=== PATIENT | male | born 1980 | race Hispanic/Latino ===

== ENCOUNTER 2022-12-10 19:34 | Emergency (ER) | payer SELFPAY ==
[2022-12-10] VITALS (21 sets, daily range): BP systolic 140–160; BP diastolic 88–107; PULSE 68–83; RESP 14–23; TEMP 36.9; O2SAT 96–100
--- NOTE | ~2022-12-10 | XR_ITS ---
EXAMINATION: XR chest 2V Exam Date/Time: 12/10/2022 20:10 [employer] HISTORY: chest pain Comparison: None available. RESULT: Lines, tubes, and devices: None. Lungs and pleura: Low lung volumes with crowding. No focal consolidation, pneumothorax, or effusion. Cardiomediastinal silhouette: Stable. Other: No acute osseous or upper abdominal finding. IMPRESSION: No acute cardiopulmonary process. Reviewed, dictated and finalized at location [facility] [employer]
--- NOTE | 2022-12-10 19:47 | ECG_ITS ---
Measurements Intervals Garner Rate: 84 P: 19 RI: 173 QRS: 42 QRSD: 100 T: 3 QT: 373 QTc: 441 Interpretive Statements SINUS RHYTHM MINIMAL Q WAVES- INFERIOR LEADS BORDERLINE ECG NO PREVIOUS ECG AVAILABLE FOR COMPARISON Electronically Signed On 12-10-2022 20:08:47 DIRECTOR OF CAMPUS RECREATION by Carlos Joyce D.O.
[2022-12-10] MEDS: ASPIRIN 81 MG CHEWABLE TABLET 324 MG PO (19:49)
[2022-12-10 20:06] LABS: Basophils Absolute Auto 0.1 K/mm3 (0.0-0.1); Basophils Percent Auto 0.5 % (0.2-1.2); Eosinophils Absolute Auto 0.1 K/mm3 (0-0.3); Hemoglobin 16.6 g/dL (14.0-18.0); Immature Granulocyte Absolute 0.04 K/mm3 (0.00-0.031); Immature Granulocyte Percent A 0.4 % (0-0.5); Lymphocytes Absolute Auto 2.82 K/mm3 (0.9-3.2); Lymphocytes Percent Auto 27.7 % (18.3-44.2); Mean Corpuscular HGB Conc 36.1 g/dl (32-36); Mean Corpuscular Hemoglobin 31.9 pg (26-34); Mean Corpuscular Volume 88.3 fl (80-100); Mean Platelet Volume 9.5 fl (7.4-10.4); Monocytes Absolute Auto 0.6 K/mm3 (0.1-0.6); Monocytes Percent Auto 5.8 % (2.6-8.5); Neutrophils Absolute Auto 6.6 K/mm3 (1.3-6.7); Neutrophils Percent Auto 64.6 % (45.5-73.1); Platelet Count Result 302 k/mm3 (150-375); Red Blood Count 5.21 M/mm3 (4.6-6.20); Red Cell Distribution Width 11.7 % (11.5-14.5); White Blood Count 10.2 K/mm3 (4.5-10.0)
[2022-12-10 20:17] LABS: Partial Thromboplastin Time 29.6 SECONDS (22.3-36.8); Prothrombin Time 12.5 Seconds (11.1-14.7)
[2022-12-10 20:20] LABS: Alanine Aminotransferase 31 U/L (6-50); Albumin Level 4.8 g/dL (3.5-5.1); Alkaline Phosphatase 111 U/L (38-126); Anion Gap 7 mmol/L (8-16); Aspartate Amino Transferase 36 U/L (17-59); Bilirubin,Total 1.5 mg/dL (0.2-1.3); Blood Urea Nitrogen 11 mg/dL (9-20); Calcium 9.3 mg/dL (8.4-10.2); Carbon Dioxide 26 mmol/L (22-30); Chloride 102 mmol/L (98-107); Estimated CRCL calculation 104 ml/min; Estimated Glomerular Filt Rate > 60; Glucose 114 mg/dL (65-110); Lipase 96 U/L (23-300); Potassium 3.6 mmol/L (3.4-5.0); Sodium 135 mmol/L (137-145)
[2022-12-10 20:30] LABS: Troponin I < 0.012 ng/mL (0.000-0.034)
--- NOTE | 2022-12-10 22:03 | ED.CHESTPAIN ---
HPI - Chest Pain General Chief Complaint: Chest Pain Stated Complaint: Chest pain Time Seen by Provider: 12/10/22 21:39 History of Present Illness HPI narrative: No other 42-year-old male no medical problems presents to the emergency room for evaluation of chest pain. Patient states over the past 3 weeks he has experienced 5 different episodes of left anterior chest pain that is aggravated when he lifts his left arm up over his head. Patient states today's event lasted approximately 10 minutes. Does not take any medications to alleviate his symptoms. 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 Denies palpitations. Denies any peripheral edema. Related Data Allergies Allergy/AdvReac Type Severity Reaction Status Date / Time No Known Allergies Allergy Verified 12/10/22 19:49 Review of Systems Review of Systems: CONSTITUTIONAL: Denies fever, chills, or sweats. EYES: Denies visual changes, redness, or discharge. ENT: Denies rhinorrhea, congestion, sore throat, or otalgia. CARDIOVASCULAR: Reports chest pain RESPIRATORY: Denies cough or dyspnea. GASTROINTESTINAL: Denies abdominal pain, nausea, vomiting, or diarrhea. GENITOURINARY: Denies dysuria or hematuria. SKIN: Denies rash or itching. MUSCULOSKELETAL: Denies back pain, joint pain, or myalgia. NEUROLOGIC: Denies headache, numbness, dizziness, or weakness. PSYCHIATRIC: Denies anxiety or depression. Exam Narrative: GENERAL: Well-appearing, well-nourished, no physical limitations, and in no acute distress. HEAD: Normocephalic, atraumatic. EYES: Conjunctivae normal, PERRLA and EOMI. CHEST: Clear to auscultation. No respiratory distress. No wheezes rales or rhonchi. Left anterior chest wall tenderness. HEART: Regular rate and rhythm. No murmur heard. Normal peripheral pulses. EXTREMITIES: Normal range of motion. No edema. No clubbing or cyanosis SKIN: Warm, dry, no rash. No noted wounds NEURO: No focal deficits. Alert and oriented x3. MAEW. CN's II-XI intact bilaterally, normal gait PSYCH: Cooperative. Normal mood and affect. Course Vital Signs Vital signs: Vital Signs Temperature 36.9 C 12/10/22 19:43 Pulse Rate 79 12/10/22 19:43 Respiratory Rate 18 12/10/22 19:43 Blood Pressure 160/106 H 12/10/22 19:43 Pulse Oximetry 100 12/10/22 19:43 Oxygen Delivery Room Air 12/10/22 19:43 Temperature 36.9 C 12/10/22 19:43 Pulse Rate 77 12/10/22 21:46 Respiratory Rate 20 12/10/22 21:46 Blood Pressure 149/88 H 12/10/22 21:46 Pulse Oximetry 98 12/10/22 21:46 Oxygen Delivery Room Air 12/10/22 21:53 MDM - Chest Pain MDM Narrative Medical decision making narrative: 42-year-old male presented to the emergency room for evaluation of intermittent chest pain for 3 weeks. His exam showed no evidence of volume overload. EKG showed no signs of acute ischemia. Single troponin and a Dr. Parekh on both negative. Well score was a 0. Chest x-ray showed no signs of acute cardiopulmonary disease. Heart score was a 0. will discharge patient home follow-up with primary care and cardiology. Lab Data 12/10/22 19:56 12/10/22 19:56 Labs: Lab Results 12/10/22 12/10/22 12/10/22 Range/Units 19:56 19:56 19:56 WBC 10.2 H (4.5-10.0) K/mm3 RBC 5.21 (4.6-6.20) M/mm3 Hgb 16.6 (14.0-18.0) g/dL Hct 46.0 (42.0-52.0) % MCV 88.3 (80-100) fl MCH 31.9 (26-34) pg MCHC 36.1 H (32-36) g/dl RDW 11.7 (11.5-14.5) % Plt Count 302 (150-375) k/mm3 MPV 9.5 (7.4-10.4) fl Immature Gran % (Auto) 0.4 (0-0.5) % Neut % (Auto) 64.6 (45.5-73.1) % Lymph % (Auto) 27.7 (18.3-44.2) % Schleicher % (Auto) 5.8 (2.6-8.5) % Eos % (Auto) 1.0 (0-4.4) % Baso % (Auto) 0.5 (0.2-1.2) % Lymph # (Auto) 2.82 (0.9-3.2) K/mm3 Schleicher # (Auto) 0.6 (0.1-0.6) K/mm3 Eos # (Auto) 0.1 (0-0.3) K/mm3 Baso # (Auto) 0.1 (0.0-0.1) K/mm3 Abs Immat Gr
[2022-12-10 23:45] LABS: Troponin I < 0.012 ng/mL (0.000-0.034)
[2022-12-11] VITALS: PULSE 68; RESP 13; O2SAT 97
[2022-12-11 00:01] VITALS: BP 155/97; PULSE 72; RESP 10; O2SAT 98
[2022-12-11 00:15] VITALS: PULSE 66; RESP 16; O2SAT 99
[2022-12-11 00:16] VITALS: BP 127/95; PULSE 68; RESP 17; O2SAT 98
== END 2022-12-11 00:25 | disposition home or self-care (01) ==
PROVIDERS: Emergency Provider Nurse Practitioner Family
DX: R07.89 Other chest pain (principal); M94.0 Chondrocostal junction syndrome [Tietze]; R94.31 Abnormal electrocardiogram [ECG] [EKG]
CPT/HCPCS: 36415; 71046; 80053; 83690; 84484; 85025; 85610; 85730; 93005; 99284; A9270